=== PATIENT | male | born 1995 | race American Indian/Alaskan Native ===

== ENCOUNTER 2020-06-16 09:38 | Emergency (ER) | payer SELFPAY ==
[2020-06-16 10:58] LABS: Bilirubin,Urine NEG (Negative); Blood,Urine NEG (Negative); Color,Urine Yellow (Yellow); Mucus,Urine FEW /HPF; Protein,Urine <15 mg/dL mg/dL (Negative); Urobilinogen,Urine < 2.0 mg/dL (<2.0)
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
[2020-06-16 11:01] LABS: Amphetamine Screen,Urine Negative; Benzodiazepines Screen,Urine Negative; Cocaine Screen,Urine Negative; Methadone Screen,Urine Negative; Opiate Screen,Urine Negative
[2020-06-16 11:49] LABS: Cannabinoid Screen,Urine PRESUMPTIVE POSITIVE
[2020-06-16 12:30] LABS: Basophils % (Auto) 0.6 % (0.0-1.8); Eosinophils # (Auto) 0.1 K/mm3 (0.0-0.4); Eosinophils % (Auto) 2.4 % (0.0-4.3); Hematocrit 42.3 % (35.5-45.6); Hemoglobin 14.4 gm/dl (11.8-15.2); Lymphocytes # (Auto) 1.3 K/mm3 (1.2-5.4); Lymphocytes % (Auto) 32.6 % (13.4-35.0); Mean Corpuscular HGB Conc 34 % (32-34); Mean Corpuscular Volume 90 fl (84-94); Monocytes # (Auto) 0.4 K/mm3 (0.0-0.8); Monocytes % (Auto) 8.7 % (0.0-7.3); Platelet Count 244 K/mm3 (140-440); Red Blood Count 4.68 M/mm3 (3.65-5.03)
[2020-06-16 12:34] LABS: BUN/Creatinine Ratio 19; Blood Urea Nitrogen 19 mg/dL (9-20); Calcium 9.7 mg/dL (8.4-10.2); Hemolysis Index 7
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
[2020-06-17] MEDS: PALIPERIDONE ER 3 MG TAB PO SCH (12:12)
[2020-06-17] MEDS: VALPROIC ACID 250 MG CAP PO SCH ×2 (14:42→22:35)
[2020-06-18] MEDS ORDERED: IPRATROPIUM 0.02% NEBU 2.5 ML IH ONE ×2 (05:09→05:10)
[2020-06-18] MEDS ORDERED: ALBUTEROL 2.5 MG/3 ML NEBU IH ONE (05:09)
[2020-06-18] MEDS: VALPROIC ACID 250 MG CAP PO SCH ×2 (08:37→13:58)
[2020-06-18] MEDS: PALIPERIDONE ER 3 MG TAB PO SCH (10:02)
--- NOTE | 2020-06-18 11:27 | Progress Note ---
Subjective - Reason for Consult Consult date: 06/18/20 Reason for consult: MHE Requesting physician: KRISSY POWELL - Chief Complaint Chief complaint: Psych Progress Patient seen this a.m., patient says he has been medication compliant, says he feels stable because he has been exercising eating and has been studying. He table since last night. Patient also reports enrolling in a meditation program while here in psych ED. REVIEW OF SYSTEMS Constitutional: Negative for weight loss ENT: Negative for stridor Respiratory: Negative for cough or hemoptysis All other systems reviewed and are negative MENTAL STATUS EXAMINATION General Appearance and Behavior: Age appropriate, good hygiene, not wearing appropriate clothes, good eye contact, cooperative polite with questioning. Cooperation: Participating/engaged Psychomotor Behavior: Psychomotor agitation Mood: Good Affect and affective range: euthymic, euphoric Thought Process:Circumstantial, Illogical, Thought Content: Flight of ideas, Illogical, Grandiose, Speech: pressured, loud volume at times Intellectual Functioning: Average Suicidal Ideation: Denies SI Homicidal Ideation: Denies HIl Impulse Control: Impaired Insight and Judgment: Limited insight and judgment Memory: Normal, Attention: Divided attention impaired Orientation: Alert, oriented, Diagnoses: Assessment and Plan - Psychiatric problem (1) Schizophrenia, acute Current Visit: Yes Status: Acute Treatment Plan MEDICATIONS: Start invega, Deparkote 250 mg TID Risks, benefits and alternatives of medications discussed with the patient, questions answered and consent obtained from patient. PSYCHOTHERAPY: Supportive psychotherapy provided MEDICAL: Per primary team DELIRIUM PRECAUTIONS: Please re-orient patient frequently, keep lights on during the day, and minimize benzodiazepines and opiates as these medications could worsen patient's confusion. PRECIPITATION EQUIPMENT TENDER: DISPOSITION: Do Recommend acute inpatient psychiatric hospitalization at this time. LEGAL STATUS: 1013 FOLLOW-UP: Will follow Thank you for the consult. Please contact with any questions and/or concerns. Mental Status Exam - Vital signs Last Vital Signs Temp 98.0 F 06/18/20 08:16 Pulse 90 06/18/20 08:16 Resp 20 06/18/20 08:16 BP 122/77 06/18/20 08:16 Pulse Ox 96 06/18/20 08:16 Assessment and Plan - Patient Problems (1) Schizophrenia, acute Current Visit: Yes Status: Acute
[2020-06-18] MEDS ORDERED: ZIPRASIDONE MESYLATE 20 MG VIAL IM ONE (12:35)
[2020-06-18 17:29] VITALS: BP 121/71
== END 2020-06-18 18:35 ==
LOC: EEVIPCON 09:38 → ED 09:38
DX: F23 Brief psychotic disorder (principal); F22 Delusional disorders; F25.0 Schizoaffective disorder, bipolar type; F41.9 Anxiety disorder, unspecified; F12.10 Cannabis abuse, uncomplicated; Z79.899 Other long term (current) drug therapy; Z88.8 Allergy status to other drugs, medicaments and biological substances
CPT/HCPCS: 36415; 80048; 80307; 81001; 85025; 96372; 99285; J3486; 80320; G0480